=== PATIENT | male | born 1975 | race African-American/Black ===

== ENCOUNTER 2017-06-19 13:25 | Emergency (ER) | payer SELFPAY ==
[2017-06-19 13:36] VITALS: BP 156/78; PULSE 91; TEMP 97.3; BMI 22.6
--- NOTE | 2017-06-19 15:47 | PDOC ---
History of Present Illness - General Chief Complaint: Hemorrhoids Stated Complaint: RECTAL PAIN Time Seen by Provider: 06/19/17 15:25 History Source: Patient Exam Limitations: No Limitations - History of Present Illness Initial Comments: 06/19/17 20:17 My chief complaint: Worsening hemorrhoid and rectal pain History of present illness: Patient is a 42-year-old male with a history of hemorrhoids here today complaining of worsening pain of external hemorrhoid over the last couple of days. Patient reports that he took a pain and tried to pop the hemorrhoid recently. Patient denies straining or history of constipation. Patient denies any rectal bleeding. Patient has been soaking in the bathtub last soap 2 days ago. Patient denies any other symptoms. Timing/Duration: getting worse Severity: moderate Associated Symptoms: reports: denies symptoms Past History - Past Medical History Allergies/Adverse Reactions: Allergies Allergy/AdvReac Type Severity Reaction Status Date / Time No Known Allergies Allergy Verified 06/19/17 13:36 Home Medications: Ambulatory Orders Hydrocortisone Acetate [Anusol Hc Suppository -] 25 mg RC BID #28 supp.rect Hydrocortisone/Pramoxine [Analpram Hc 2.5% Cream] 30 gm RC TID #1 cream.appl MDD 3 06/19/17 COPD: No GI Disorders: Yes (hemorrhoids) Thyroid Disease: No - Suicide/Smoking/Psychosocial Hx Smoking History: Unknown if ever smoked Have you smoked in the past 12 months: No Information on smoking cessation initiated: No Hx Alcohol Use: No Drug/Substance Use Hx: No Substance Use Type: None Review of Systems - Review of Systems Able to Perform ROS?: Yes Constitutional: No: Symptoms Reported HEENTM: No: Symptoms Reported Respiratory: No: Symptoms reported Cardiac (ROS): No: Symptoms Reported ABD/GI: Yes: Other (EXTERNAL HEMORRHOID ). No: Rectal Bleeding Musculoskeletal: No: Symptoms Reported Integumentary: No: Symptoms Reported *Physical Exam - Vital Signs Last Vital Signs Temp Pulse Resp BP Pulse Ox 97.3 F L 91 H 18 156/78 100 06/19/17 13:34 06/19/17 13:34 06/19/17 13:34 06/19/17 13:34 06/19/17 13:34 - Physical Exam General Appearance: Yes: Appropriately Dressed Respiratory/Chest: positive: Lungs Clear, Normal Breath Sounds. negative: Chest Tender, Respiratory Distress Cardiovascular: positive: Regular Rhythm, Regular Rate, S1, S2 Gastrointestinal/Abdominal: positive: Normal Bowel Sounds, Soft. negative: Tender, Organomegaly, Distended, Guarding, Rebound, Tenderness, Hepatomegaly, Spleenomegaly Rectal Exam: positive: hemorrhoids (EXTERNAL NON THROMBOSED ) Medical Decision Making - Medical Decision Making 06/19/17 20:18 Patient is a 42-year-old male with a history of hemorrhoids here today complaining of worsening pain of external hemorrhoid over the last couple of days. Patient reports that he took a pain and tried to pop the hemorrhoid recently. Patient denies straining or history of constipation. Patient denies any rectal bleeding. Patient has been soaking in the bathtub last soap 2 days ago. Patient denies any other symptoms. external hemorroid PLAN: ANNUSOL SUPP 25 MG BID FOR 2 WEEKS COLACE DIRECTED BY CONTINUOUS DRYOUT OPERATOR HYDROCORTIOSONE PRANOXINE CREAM APPLY TID TO HEMORRHOID FOLLOW UP WITH GI SITZ BATHS FREQUENTLY COOL COMPRESS 06/19/17 20:21 *DC/Admit/Observation/Transfer Diagnosis at time of Disposition: Hemorrhoids, external without complications - Discharge Dispostion Disposition: HOME Condition at time of disposition: Stable - Prescriptions Prescriptions: Hydrocortisone Acetate [Anusol Hc Suppository -] 25 mg RC BID #28 supp.rect Hydrocortisone/Pramoxine [Analpram Hc 2.5% Cream] 30 gm RC TID #1 cream.appl MDD 3 - Referrals Referrals: Hussain Peters MD [Staff Physician] - - Patient Instructions Additional Instructions: Follow-up with GI doctor as soon as possible Soak area involved every 2 hours and warm water May apply warm compress to area involved Return to emergency room if symptoms worsen or new symptoms develop Take Colace as directed by auto seat cover installer to soften stool Patient voiced understanding of discharge instructions and all questions were answered - Post Discharge Activity
== END 2017-06-19 16:39 | disposition home or self-care (01) ==
LOC: JERFT 13:25
DX: K64.4 Residual hemorrhoidal skin tags (principal)
CPT/HCPCS: 99281-25